=== PATIENT | female | born 1970 | race African-American/Black ===

== ENCOUNTER 2021-04-09 13:00 | Emergency (ER) | payer BC ==
[2021-04-09 13:23] VITALS: PULSE 101; TEMP 98.6; BMI 34.8
[2021-04-09 16:07] LABS: BASO % 0.9 % (0-2.0); EOS % 2.2 % (0-4.5); HEMATOCRIT 41.5 % (32.4-45.2); HEMOGLOBIN 14.3 GM/dL (10.7-15.3); LYMPH % 55.4 % (8-40); MCHC 34.4 g/dl (32.0-36.0); MEAN CELL VOLUME 90.1 fl (80-96); MEAN PLT VOLUME 8.2 fl (7.5-11.1); MONO % 8.9 % (3.8-10.2); NEUT % 32.6 % (42.8-82.8); PLATELET COUNT 290 K/MM3 (134-434); RBC 4.61 M/mm3 (3.60-5.2); RDW 13.8 % (11.6-15.6); WHITE BLOOD COUNT 6.9 K/mm3 (4.0-10.0)
[2021-04-09 16:18] LABS: INR 0.89 (0.83-1.09); PROTHROMBIN TIME (PATIENT) 10.8 SEC (9.7-13.0)
[2021-04-09 16:19] LABS: VENOUS O2 SATURATION 41.7 % (70-80); VENOUS PCO2 52.8 mmHg (38-52); VENOUS PH 7.353 (7.310-7.410)
[2021-04-09 17:47] LABS: CHLORIDE 103 mmol/L (98-107); SODIUM 137 mmol/L (136-145)
[2021-04-09 17:51] LABS: ALBUMIN 3.6 g/dl (3.4-5.0)
[2021-04-09 17:52] LABS: ANION GAP 8 MMOL/L (8-16); BLOOD UREA NITROGEN 11.8 mg/dL (7-18); CALCIUM 9.4 mg/dL (8.5-10.1); CO2 26 mmol/L (21-32); GLUCOSE,RANDOM 223 mg/dL (74-106); LIPASE 211 U/L (73-393); MAGNESIUM 2.2 mg/dL (1.8-2.4)
[2021-04-09 17:54] LABS: SGOT/AST 30 U/L (15-37); SGPT/ALT 36 U/L (13-61)
[2021-04-09 17:55] LABS: BILIRUBIN,TOTAL 0.4 mg/dL (0.2-1); CREATININE 0.6 mg/dL (0.55-1.3)
[2021-04-09 17:56] LABS: ALK PHOS 106 U/L (45-117); TOT PROT 7.2 g/dl (6.4-8.2)
[2021-04-09 19:26] VITALS: BP 143/90
== END 2021-04-09 20:36 | disposition left against medical advice (07) ==
LOC: JER 13:00
DX: K62.5 Hemorrhage of anus and rectum (principal); R19.00 Intra-abdominal and pelvic swelling, mass and lump, unspecified site; R73.9 Hyperglycemia, unspecified; R10.84 Generalized abdominal pain
CPT/HCPCS: 36415; 80053; 82272; 82550; 82803; 82962; 83605; 83690; 83735; 84484; 84703; 85025; 85610; 85730; 86850; 86900; 86901; 93005; 93010; 99285-25; C9803; U0003; U0005